=== PATIENT | male | born 1945 | race Caucasian/White ===

== ENCOUNTER → 2016-04-07 | Outpatient (CLI) | payer MEDICARE, BC ==
[~2016-04-07] MED LIST: ASP81TEC PO; LISI10TA PO; SIMV40TA4 PO
== END ==
LOC: ONC 11:39
PROVIDERS: ATTEND Radiology Radiation Oncology
DX: C32.0 Malignant neoplasm of glottis (principal)
CPT/HCPCS: 71020; 99213

== ENCOUNTER → 2016-04-07 | Outpatient (CLI) | payer MEDICARE, BC ==
--- NOTE | 2016-04-07 13:35 | Diagnostic Imaging Report ---
INDICATION: Head and neck cancer. COMPARISON: 04/11/2015. FINDINGS: No suspicious nodularity, infiltrate, failure, effusion, or pneumothorax. Cardiomediastinal and hilar contours normal. IMPRESSION: Stable negative chest. Dictated by: Dictated on workstation # [id number]
== END ==
LOC: RAD 10:48
PROVIDERS: ATTEND Nurse Practitioner Family
DX: C32.0 Malignant neoplasm of glottis (principal)
CPT/HCPCS: 71020

== ENCOUNTER → 2017-04-09 | Outpatient (CLI) | payer MEDICARE, BC ==
--- NOTE | 2017-04-09 09:04 | Diagnostic Imaging Report ---
INDICATION: Squamous cell carcinoma. COMPARISON: 04/07/16. FINDINGS: Frontal and lateral views of the chest demonstrate clear lungs bilaterally. The heart is normal. There is no pneumothorax. Osseous structures are normal. IMPRESSION: Negative chest. Dictated by: Dictated on workstation # [id number]
== END ==
LOC: ONC 08:33
PROVIDERS: ATTEND Radiology Radiation Oncology
DX: C32.0 Malignant neoplasm of glottis (principal)
CPT/HCPCS: 71046; 99213

== ENCOUNTER → 2018-06-22 | Outpatient (CLI) | payer MEDICARE, OTHER ==
--- NOTE | 2018-06-22 12:42 | Diagnostic Imaging Report ---
INDICATION: History of cancer. COMPARISON: 04/09/2017. FINDINGS: Frontal and lateral views of the chest demonstrate normal heart size and pulmonary vascularity. The lungs are clear. There are no signs of infiltrate, pleural effusions or pneumothoraces. The visualized osseous structures show no acute abnormalities. IMPRESSION: 1. No acute process. No signs of infiltrates, effusions or pneumothoraces. Dictated by: Dictated on workstation # [id number]
== END ==
LOC: RAD 09:23
PROVIDERS: ATTEND Nurse Practitioner Family
DX: C32.9 Malignant neoplasm of larynx, unspecified (principal)
CPT/HCPCS: 71046

== ENCOUNTER → 2018-06-22 | Outpatient (CLI) | payer MEDICARE, OTHER | LOC: ONC 10:00 | PROVIDERS: ATTEND Radiology Radiation Oncology | DX: C32.9 Malignant neoplasm of larynx, unspecified (principal) | CPT/HCPCS: 99213 ==

== ENCOUNTER → 2019-09-20 | Outpatient (CLI) | payer MEDICARE, OTHER ==
--- NOTE | 2019-09-20 08:33 | Diagnostic Imaging Report ---
INDICATION: Head and neck cancer. TIME OF EXAM: 8:30 AM Correlation is made with prior chest from 06/22/2018. The heart size is normal. Lungs do show some hyperinflation consistent with COPD. The pulmonary vascularity is normal. No infiltrate or nodule is seen. No effusion or pneumothorax. IMPRESSION: COPD. No acute feature is detected. Dictated by: Dictated on workstation # [id number]
== END ==
LOC: RAD 08:10
PROVIDERS: ATTEND Radiology Radiation Oncology
DX: J44.9 Chronic obstructive pulmonary disease, unspecified (principal); C76.0 Malignant neoplasm of head, face and neck
CPT/HCPCS: 71046

== ENCOUNTER → 2019-09-20 | Outpatient (CLI) | payer MEDICARE, OTHER | LOC: ONC 08:34 | PROVIDERS: ATTEND Radiology Radiation Oncology | DX: C76.0 Malignant neoplasm of head, face and neck (principal) | CPT/HCPCS: 99213 ==

== ENCOUNTER → 2021-01-02 | Outpatient (CLI) | payer MEDICARE ==
--- NOTE | 2021-01-02 09:11 | Diagnostic Imaging Report ---
INDICATION: Head and neck carcinoma. Check for metastatic disease. EXAMINATION: 2 view chest 01/02/2021 COMPARISON: 09/20/2019 FINDINGS: Heart and pulmonary vasculature normal. Lungs and pleural spaces clear other than minimal atelectasis at the bases. There are no suspicious masses. No infiltrates, effusions or pneumothorax. There is no acute osseous abnormality. Impression: 1. No acute process. Dictated by: Dictated on workstation # [id number]
== END ==
LOC: RAD 08:06
PROVIDERS: ATTEND Nurse Practitioner Family
DX: C76.0 Malignant neoplasm of head, face and neck (principal)
CPT/HCPCS: 71046

== ENCOUNTER → 2021-01-02 | Outpatient (CLI) | payer MEDICARE | LOC: ONC 08:41 | PROVIDERS: ATTEND Radiology Radiation Oncology | DX: C32.9 Malignant neoplasm of larynx, unspecified (principal); I61.9 Nontraumatic intracerebral hemorrhage, unspecified | CPT/HCPCS: 99213 ==

== ENCOUNTER → 2022-01-01 | Outpatient (CLI) | payer MEDICARE ==
--- NOTE | 2022-01-01 11:50 | Diagnostic Imaging Report ---
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 COMPARISON: 01/02/2021. TECHNIQUE: Two radiographs of the chest dated 01/01/2022. FINDINGS: The cardiac silhouette is within normal limits in size. No significant pulmonary vascular congestion. The lungs are clear of focal pulmonary opacity. No pleural effusion. No pneumothorax. No acute osseous abnormality. IMPRESSION: Stable-appearing examination without acute cardiopulmonary abnormality. Dictated by: Dictated on workstation # [id number]
== END ==
LOC: RAD 10:05
PROVIDERS: ATTEND Radiology Radiation Oncology
DX: C32.9 Malignant neoplasm of larynx, unspecified (principal)
CPT/HCPCS: 71046

== ENCOUNTER → 2022-01-01 | Outpatient (CLI) | payer MEDICARE | LOC: ONC 10:13 | PROVIDERS: ATTEND Radiology Radiation Oncology | DX: Z51.0 Encounter for antineoplastic radiation therapy (principal); I61.9 Nontraumatic intracerebral hemorrhage, unspecified; C32.9 Malignant neoplasm of larynx, unspecified | CPT/HCPCS: 99213 ==

== ENCOUNTER → 2022-12-24 | Outpatient (CLI) | payer MEDICARE | LOC: ONC 08:09 | PROVIDERS: ATTEND Radiology Radiation Oncology | DX: C32.9 Malignant neoplasm of larynx, unspecified (principal); I61.9 Nontraumatic intracerebral hemorrhage, unspecified | CPT/HCPCS: 99213 ==

== ENCOUNTER → 2022-12-24 | Outpatient (CLI) | payer MEDICARE ==
--- NOTE | 2022-12-24 09:10 | Diagnostic Imaging Report ---
INDICATION: 161.9 SCC VOCAL CORD CA COMPARISON: 01/01/2022 FINDINGS: Frontal and lateral views of the chest demonstrate normal heart size and pulmonary vascularity. The lungs are clear. There are no signs of infiltrate, pleural effusions or pneumothoraces. The visualized osseous structures show no acute abnormalities. IMPRESSION: 1. No acute process. No signs of infiltrates, effusions or pneumothoraces. Dictated by: Dictated on workstation # [id number]
== END ==
LOC: RAD 08:10
PROVIDERS: ATTEND Radiology Radiation Oncology
DX: I61.9 Nontraumatic intracerebral hemorrhage, unspecified (principal)
CPT/HCPCS: 71046